=== PATIENT | male | born 1985 | race Two or more races ===

== ENCOUNTER 2021-07-02 09:23 | Outpatient (REF) | payer OTHER, SELFPAY ==
[2021-07-02 10:15] LABS: Estimated Average Glucose 103 mg/dL; Hemoglobin A1c % 5.2 %
[2021-07-02 10:41] LABS: Alanine Aminotransferase 24 U/L (0-40); Albumin Level 4.7 g/dL (3.5-5.0); Alkaline Phosphatase 83 U/L (39-117); Anion Gap 8 (12-20); Aspartate Amino Transferase 33 U/L (5-37); Blood Urea Nitrogen 12 mg/dL (9-16); Calcium 9.8 mg/dL (8.4-10.2); Carbon Dioxide 31 mmol/L (22-29); Chloride 105 mmol/L (96-108); Cholesterol 242 mg/dL; Estimated Glomerular Filt Rate > 60; Glucose Fasting 103 mg/dL (60-99); HDL Cholesterol 47 mg/dL; LDL Cholesterol Calculated 180 mg/dl; Potassium 5.3 mmol/L (3.3-5.1); Sodium 139 mmol/L (135-145); Total Protein 7.7 g/dL (6.5-8.0); Triglycerides 76 mg/dL
[2021-07-02 11:00] LABS: TSH reflex Free T4 0.54 uIU/mL (0.32-4.0)
[2021-07-02 11:49] LABS: Creatinine Urine 25.21 mg/dL; Microalbum/Creatinine Ratio Ur 23.8 ug/mg cr
== END 2021-07-02 09:24 | disposition home or self-care (01) ==
LOC: HO.LAB 09:23
PROVIDERS: PCP Family Medicine; Visit Provider Family Medicine
DX: Z00.00 Encounter for general adult medical examination without abnormal findings (principal); I10 Essential (primary) hypertension; R03.0 Elevated blood-pressure reading, without diagnosis of hypertension; R73.03 Prediabetes
CPT/HCPCS: 36415; 80053; 80061; 82043; 83036; 84443

== ENCOUNTER → 2021-08-25 09:06 | Outpatient (BNVA) | payer OTHER, SELFPAY | PROVIDERS: PCP Family Medicine; Referring Provider Family Medicine; Visit Provider Psychiatry & Neurology Neurology ==

== ENCOUNTER → 2021-09-03 11:27 | Outpatient (REF) | payer OTHER, SELFPAY | LOC: HO.SL 11:27 | PROVIDERS: PCP Family Medicine; Visit Provider Psychiatry & Neurology Neurology | DX: R06.81 Apnea, not elsewhere classified (principal); R06.83 Snoring | CPT/HCPCS: 95806 ==

== ENCOUNTER → 2021-09-03 11:49 | Outpatient (REF) | payer OTHER, SELFPAY ==
--- NOTE | 2021-09-03 11:52 | ECG_ITS ---
Hook-up date: 2021-09-03 12:05:00 Duration: 47:59:00 Test Indications: PALPITATIONS Medications: [id number] QRS complexes 18 Ventricular ectopics which represent <1 % of total QRS comp. 77 Supraventricular ectopics which represent <1 % of total QRS comp. * Paced QRS complexs which represent % of total QRS comp. VENTRICULAR ECTOPY 15 Isolated 0 Bigeminal Cycles 0 Couplets 1 Runs 3 Beats in Runs 3 Beats LONGEST at 135 BPM at 20:57:26 2021-09-03 3 Beats FASTEST at 135 BPM at 20:57:26 2021-09-03 SUPRAVENTRICULAR ECTOPY 77 Isolated 0 Couplets 0 Runs 0 Beats in Runs * Beats LONGEST at * BPM at :: -- * Beats FASTEST at * BPM at :: -- HEART RATES 40 MIN at 01:00:42 2021-09-04 74 AVG 166 MAX at 07:52:30 2021-09-04 LONGEST RR 1.7840 secs at 01:00:35 2021-09-04 S-T LEVELS Channel 1 - 128 mm at 12:05:00 2021-09-03 - 128 mm at 12:05:00 2021-09-03 Channel 2 - 128 mm at 12:05:00 2021-09-03 - 128 mm at 12:05:00 2021-09-03 Channel 3 - 128 mm at 03:12:41 -- - 128 mm at 03:12:41 Underlying rhythm is sinus; Average ventricular rate 74/min; range 40-166/min; Rare PACs; Rare PVCs; one run of 3 beats; Patient did not report any symptoms in the diary Referred By: Yusuf Moyer Overread By: STEPHEN LOPEZ
== END ==
LOC: HO.CARD 11:49
PROVIDERS: Visit Provider Psychiatry & Neurology Neurology
DX: R00.2 Palpitations (principal)
CPT/HCPCS: 93225; 93226

== ENCOUNTER 2021-09-29 08:10 | Outpatient (REF) | payer OTHER, SELFPAY ==
[2021-09-29 09:18] LABS: Estimated Average Glucose 103 mg/dL; Hemoglobin A1c % 5.2 %
[2021-09-29 09:38] LABS: Anion Gap 11 (12-20); Blood Urea Nitrogen 13 mg/dL (9-16); Calcium 9.8 mg/dL (8.4-10.2); Carbon Dioxide 31 mmol/L (22-29); Chloride 103 mmol/L (96-108); Cholesterol 238 mg/dL; Estimated Glomerular Filt Rate > 60; Glucose Fasting 94 mg/dL (60-99); HDL Cholesterol 43 mg/dL; LDL Cholesterol Calculated 176 mg/dl; Potassium 4.5 mmol/L (3.3-5.1); Sodium 140 mmol/L (135-145); Triglycerides 97 mg/dL
[2021-09-29 09:43] LABS: Creatinine Urine 154.25 mg/dL; Microalbum/Creatinine Ratio Ur 34.3 ug/mg cr
== END 2021-09-29 08:11 | disposition home or self-care (01) ==
LOC: HO.LAB 08:10
PROVIDERS: PCP Family Medicine; Visit Provider Family Medicine
DX: Z00.00 Encounter for general adult medical examination without abnormal findings (principal); E87.5 Hyperkalemia; R73.01 Impaired fasting glucose; I10 Essential (primary) hypertension
CPT/HCPCS: 36415; 80048; 80061; 82043; 83036

== ENCOUNTER → 2021-11-05 08:55 | Outpatient (BNVA) | payer OTHER, SELFPAY | PROVIDERS: PCP Family Medicine; Visit Provider Nurse Practitioner Family ==

== ENCOUNTER 2024-03-17 09:57 | Outpatient (REF) | payer OTHER, SELFPAY ==
[2024-03-17 10:22] LABS: MANUAL DIFF FLAG NO
[2024-03-17 10:25] LABS: Basophils Percent Auto 0.4 % (0-2); Eosinophils Absolute Auto 0.1 X10*3/uL (0.0-0.4); Eosinophils Percent Auto 1.4 % (0-4); Hemoglobin 14.5 g/dl (14.0-18.0); Imm Gran Abs Auto 0.01 X10*3/uL (0.00-0.03); Imm Gran Pct Auto 0.2 % (0.0-0.4); Lymphocytes Percent Auto 41.2 % (20-40); Mean Corpuscular HGB Conc 35.4 g/dl (31.0-36.0); Mean Corpuscular Hemoglobin 29.1 pg (27.0-33.0); Mean Corpuscular Volume 82.2 fL (80.0-98.0); Mean Platelet Volume 9.5 fL (9.4-12.4); Monocytes Absolute Auto 0.4 X10*3/uL (0.1-1.2); Monocytes Percent Auto 7.6 % (2-11); Neutrophils Absolute Auto 2.4 x10*3/uL (2.0-8.3); Neutrophils Percent Auto 49.2 % (45-73); Platelet Count 198 X10*3/uL (160-400); Red Blood Count 4.99 X10*6/uL (4.60-5.80); Red Cell Distribution Width 12.6 % (11.0-16.0); White Blood Count 4.9 X10*3/uL (4.8-10.8)
[2024-03-17 10:45] LABS: Cholesterol 232 mg/dL (<200); HDL Cholesterol 52 mg/dL (>40); Iron 126 mcg/dL (45-160); LDL Cholesterol Calculated 167 mg/dL (<100); Percent Iron Saturation 45 % (15-50); Total Iron Binding Capacity 282 mcg/dL (228-428); Triglycerides 65 mg/dL (<150); Unsaturated Iron Binding 156 ug/dL
[2024-03-17 10:47] LABS: Estimated Average Glucose 103 mg/dL; Hemoglobin A1c % 5.2 % (<6.0)
[2024-03-17 11:00] LABS: Ferritin 69 ng/mL (20-250); TSH reflex Free T4 0.54 uIU/mL (0.32-4.0)
[2024-03-17 11:02] LABS: Prostate Specific Antigen 0.37 ng/mL (<0.05-4.0)
[2024-03-19 07:54] LABS: Lutenizing Hormone 5.5 mIU/mL (1.5-9.3)
[2024-03-19 20:04] LABS: Homocysteine 9.4 umol/L (<11.4)
[2024-03-21 21:09] LABS: Estradiol Ultra Sensitive 29 pg/mL (< OR = 29)
[2024-03-22 07:54] LABS: Lipoprotein A 116 nmol/L (<75)
[2024-03-22 14:53] LABS: Apolipoprotein A1 140 mg/dL (>=115); Apolipoprotein B 119 mg/dL (<90)
[2024-03-24 16:34] LABS: VITAMIN D (1,25 OH) D3 42 pg/mL; Vit D (1,25-Dihydroxy) Total 42 pg/mL (18-72); Vitamin D (1,25 OH) D2 <8 pg/mL
[2024-03-24 18:18] LABS: Testosterone, Free 81.1 pg/mL (35.0-155.0); Testosterone, Total 571 ng/dL (250-1100)
[2024-03-29 05:59] LABS: Dihydrotestosterone 42 ng/dL (12-65)
== END 2024-03-17 09:58 | disposition home or self-care (01) ==
LOC: HO.LAB 09:57
PROVIDERS: PCP Internal Medicine; Visit Provider Physician Assistant
DX: E03.9 Hypothyroidism, unspecified (principal); E29.1 Testicular hypofunction; E72.10 Disorders of sulfur-bearing amino-acid metabolism, unspecified; E66.1 Drug-induced obesity; E11.9 Type 2 diabetes mellitus without complications; E55.9 Vitamin D deficiency, unspecified; D64.9 Anemia, unspecified; Z12.5 Encounter for screening for malignant neoplasm of prostate; E78.5 Hyperlipidemia, unspecified; K76.0 Fatty (change of) liver, not elsewhere classified; R53.83 Other fatigue; R97.20 Elevated prostate specific antigen [PSA]; E78.9 Disorder of lipoprotein metabolism, unspecified
CPT/HCPCS: 36415; 80061; 82172; 82642; 82652; 82670; 82728; 83001; 83002; 83036; 83090; 83540; 83695; 84153; 84402; 84403; 84443; 85025